=== PATIENT | female | born 1945 | race Caucasian/White ===

== ENCOUNTER 2016-12-16 07:04 | Emergency (ER) | payer MEDICARE, OTHER ==
--- NOTE | 2016-12-16 07:54 | EDM.PDOC ---
ED HPI GENERAL MEDICAL PROBLEM - General Chief Complaint: ENT Problem Stated Complaint: ISSUES SWALLOWING/FEELS LIKE SOMETHING IN THROAT Time Seen by Provider: 12/16/16 07:44 Source of Information: Reports: Patient, RN Notes Reviewed History Limitations: Reports: No Limitations - History of Present Illness INITIAL COMMENTS - FREE TEXT/NARRATIVE: 71-year-old female presents emergency department today with complaint of neck swelling and difficulty swallowing, she states this started about 2 days ago and is progressively gotten worse she denies any fever no trauma no other symptoms - Related Data Allergies Allergy/AdvReac Type Severity Reaction Status Date / Time propoxycaine [Propoxycaine] Allergy Severe Difficulty Verified 12/16/16 07:38 Breathing adhesive Allergy Cannot Verified 12/16/16 07:38 Remember niacin Allergy Itching Verified 12/16/16 07:38 Home Meds: Home Meds Bismuth Subsalicylate [Pepto Bismol] PRN 10/07/13 [History] Calcium Carbonate/Vitamin D2 [Calcium with Vit D] 1 each PO TID 10/07/13 [ History] Metoprolol Tartrate [Lopressor] 50 mg PO TID 10/07/13 [History] Simvastatin [Zocor] 40 mg PO ASDIRECTED 10/07/13 [History] cycloSPORINE [Restasis] 1 each OP ASDIRECTED 10/07/13 [History] Citalopram Hydrobromide [Citalopram HBr] 20 mg PO DAILY 12/16/16 [History] Past Medical History Cardiovascular History: Reports: High Cholesterol, Hypertension Social & Family History - Tobacco Use Second Hand Smoke Exposure: No - Alcohol Use Days Per Week of Alcohol Use: 0 - Recreational Drug Use Recreational Drug Use: No ED ROS GENERAL - Review of Systems Review Of Systems: See Below Constitutional: Denies: Fever, Chills HEENT: Reports: Throat Pain, Throat Swelling Respiratory: Reports: No Symptoms Cardiovascular: Reports: No Symptoms GI/Abdominal: Reports: No Symptoms : Reports: No Symptoms Musculoskeletal: Reports: Neck Pain Skin: Reports: No Symptoms Neurological: Reports: No Symptoms ED EXAM, GENERAL - Physical Exam Exam: See Below Free Text/Narrative:: General: Female, not in any distress, alert and oriented x3 HEENT: head is atraumatic normocephalic, eyes pupils equal round reactive to light, sclera clear no conjunctivitis appreciated. Ears tympanic membranes clear and bey landmarks and light reflex are present bilaterally canals are clear. Nose no septal deviation, nares are clear, no blood present. Mouth mucosa is moist and pink no erythema or exudate noted in soft palate, tongue is midline uvula is midline, dentition is intact. Neck: Does have a enlarged area on the right side starts at the jaw margin and progresses down to the clavicle width is from the trachea to the a auricular , It is fluctuant tender to the touch no erythema noted Nodes: Cervical nodes subclavicular nodes nontender no palpable lymphadenopathy noted. Lungs: clear to auscultation bilaterally with symmetrical respirations, no adventitious noise appreciated. CV: Regular rate and rhythm S1 and S2 appreciated no murmurs rubs or gallops noted. Course - Vital Signs Last Recorded V/S: Last Vital Signs Temp 97.1 F 12/16/16 09:57 Pulse 87 12/16/16 09:57 Resp 16 12/16/16 09:57 BP 163/87 H 12/16/16 09:57 Pulse Ox 95 12/16/16 09:57 - Orders/Labs/Meds Orders: Active Orders 24 hr Category Date Time Status Peripheral IV Care [RC] . DIRECTED Care 12/16/16 08:48 Active Soft Tissue Neck w Cont [CT] Stat Exams 12/16/16 08:47 Taken Iopamidol [Isovue-300 (61%)] Med 12/16/16 09:30 Active 100 ml IV . DIRECTED Sodium Chloride 0.9% [Normal Saline] 1,000 ml Med 12/16/16 09:00 Active IV ASDIRECTED Sodium Chloride 0.9% [Normal Saline] 80 ml Med 12/16/16 09:30 Active IV ASDIRECTED Sodium Chloride 0.9% [Saline Flush] Med 12/16/16 08:47 Active 10 ml FLUSH ASDIRECTED PRN Peripheral IV Insertion Adult [OM.PC] Urgent Oth 12/16/16 08:47 Ordered Medication Orders Sodium Chloride (Normal Saline) 1,000 mls @ 500 mls/hr IV ASDIRECTED NEREYDA Last Admin: 12/16/16 09:35 Dose: 500 mls/hr Sodium Chloride (Normal Saline) 80 mls @ 3 mls/sec IV ASDIRECTED NEREYDA Last Admin: 07/04/17 09:46 Dose: 3 mls/sec Iopamidol (Isovue-300 (61%)) 100 ml IV . DIRECTED NEREYDA Last Admin: 12/16/16 09:46 Dose: 100 ml Sodium Chloride (Saline Flush) 10 ml FLUSH ASDIRECTED PRN PRN Reason: Keep Vein Open Last Admin: 12/16/16 09:46 Dose: 10 ml Admin: 12/16/16 09:34 Dose: 10 ml Labs: Laboratory Tests 12/16/16 12/16/16 Range/Units 07:49 07:49 WBC 6.5 (4.5-11.0) K/uL RBC 4.36 (3.30-5.50) M/uL Hgb 12.2 (12.0-15.0) g/dL Hct 37.3 (36.0-48.0) % MCV 86 (80-98) fL MCH 28 (27-31) pg MCHC 33 (32-36) % Plt Count 199 (150-400) K/uL Neut % (Auto) 41 (36-66) % Lymph % (Auto) 45 H (24-44) % [place] % (Auto) 11 H (2-6) % Eos % (Auto) 3 (2-4) % Baso % (Auto) 1 (0-1) % ESR 7 (0-25) mm/hr Sodium 145 (140-148) mmol/L Potassium 3.9 (3.6-5.2) mmol/L Chloride 108 (100-108) mmol/L Carbon Dioxide 30 (21-32) mmol/L Anion Gap 7.0 (5.0-14.0) mmol/L BUN 16 (7-18) mg/dL Creatinine 0.8 (0.6-1.0) mg/dL Est Cr Clr Drug Dosing 54.90 mL/min Estimated GFR (MDRD) > 60 (>60) Glucose 92 (74-106) mg/dL Calcium 8.8 (8.5-10.1) mg/dL Total Bilirubin 1.6 H (0.2-1.0) mg/dL AST 31 (15-37) U/L ALT 52 (12-78) U/L Alkaline Phosphatase 44 L (46-116) U/L C-Reactive Protein 0.03 (0.0-0.3) mg/dL Total Protein 7.3 (6.4-8.2) g/dL Albumin 3.9 (3.4-5.0) g/dL Globulin 3.4 (2.3-3.5) g/dL Albumin/Globulin Ratio 1.1 L (1.2-2.2) Meds: Medications Generic Name Dose Route Start Last Admin Trade Name Marissa PRN Reason Stop Dose Admin Sodium Chloride 1,000 mls @ 500 mls/hr 12/16/16 09:00 12/16/16 09:35 Normal Saline IV 500 mls/hr ASDIRECTED NEREYDA Administration Sodium Chloride 80 mls @ 3 mls/sec 12/16/16 09:30 12/16/16 09:46 Normal Saline IV 3 mls/sec ASDIRECTED NEREYDA Administration Iopamidol 100 ml 12/16/16 09:30 12/16/16 09:46 Isovue-300 (61%) IV 100 ml . DIRECTED NEREYDA Administration Sodium Chloride 10 ml 12/16/16 08:47 12/16/16 09:46 Saline Flush FLUSH 10 ml ASDIRECTED PRN Administration Keep Vein Open Discontinued Medications Generic Name Dose Route Start Last Admin Trade Name Juan Joséq PRN Reason Stop Dose Admin Ceftriaxone Sodium 1,000 mg 12/16/16 10:27 12/16/16 10:44 Rocephin IVPUSH 12/16/16 10:28 1,000 mg ONETIME ONE Administration Dexamethasone 4 mg 12/16/16 10:49 12/16/16 10:55 Dexamethasone IVPUSH 12/16/16 10:50 4 mg ONETIME ONE Administration Departure - Departure Time of Disposition: 10:58 Disposition: DC/Tfer to Acute Hospital 02 Condition: Fair Clinical Impression: Epiglottitis - Discharge Information Forms: ED Department Discharge - My Orders Last 24 Hours: My Active Orders 12/16/16 08:47 Soft Tissue Neck w Cont [CT] Stat Sodium Chloride 0.9% [Saline Flush] 10 ml FLUSH ASDIRECTED PRN Peripheral IV Insertion Adult [OM.PC] Urgent 12/16/16 08:48 Peripheral IV Care [RC] . DIRECTED 12/16/16 09:00 Sodium Chloride 0.9% [Normal Saline] 1,000 ml IV ASDIRECTED 12/16/16 09:30 Iopamidol [Isovue-300 (61%)] 100 ml IV . DIRECTED Sodium Chloride 0.9% [Normal Saline] 80 ml IV ASDIRECTED - Assessment/Plan Last 24 Hours: My Active Orders 12/16/16 08:47 Soft Tissue Neck w Cont [CT] Stat Sodium Chloride 0.9% [Saline Flush] 10 ml FLUSH ASDIRECTED PRN Peripheral IV Insertion Adult [OM.PC] Urgent 12/16/16 08:48 Peripheral IV Care [RC] . DIRECTED 12/16/16 09:00 Sodium Chloride 0.9% [Normal Saline] 1,000 ml IV ASDIRECTED 12/16/16 09:30 Iopamidol [Isovue-300 (61%)] 100 ml IV . DIRECTED Sodium Chloride 0.9% [Normal Saline] 80 ml IV ASDIRECTED Plan: Assessment Acuity = acute Site and laterality = acute epiglottitis complicated patient with history of hypertension, diastolic heart failure and history of multinodular goiter Etiology = suspicious for bacterial cause Manifestations = difficulty breathing difficulty swallowing Location of injury = Home Lab values = CBC CMP unremarkable CT scan shows marked soft tissue thickening of the right aryepiglottic fold with thickening of the epiglottitis Plan Called and discussed the case year nose and throat physician on-call at [facility] who kindly accept the patient in transport she was given 1 g Rocephin prior to discharge as well as 4 mg dexamethasone she will be transported via EMS services Patient was in agreement with the plan all questions were answered, This note was dictated using [employer] voice recognition software please call with any questions.
[2016-12-16] MEDS ORDERED: Sodium Chloride 0.9% 1,000 ML IV SCH (09:00)
[2016-12-16] MEDS ORDERED: Iopamidol 612 MG/ML 100 ML Bottle IV SCH (09:30)
[2016-12-16] MEDS ORDERED: Sodium Chloride 0.9% 80 ML IV SCH (09:30)
[2016-12-16] MEDS: Sodium Chloride 0.9% 10 ML Syringe FLUSH PRN ×2 (09:34→09:46)
[2016-12-16] MEDS ORDERED: cefTRIAXone 500 MG Vial IVPUSH ONE (10:27)
[2016-12-16] MEDS ORDERED: Dexamethasone 4 MG/ML SDV IVPUSH ONE (10:49)
[2016-12-16 10:59] VITALS: BP 162/92
== END 2016-12-16 11:35 ==
LOC: JP.ED 07:04
DX: J05.10 Acute epiglottitis without obstruction (principal)
CPT/HCPCS: 36415; 70491; 80053; 85025; 85651; 86140; J0696; J1100; J7030; J7040; J7050; Q9967; 96361; 96374; 96375; 99284; 99285-25

== ENCOUNTER 2017-04-15 17:24 | Emergency (ER) | payer MEDICARE, OTHER ==
[2017-04-15] MEDS ORDERED: Sodium Chloride 0.9% 10 ML Syringe FLUSH PRN (17:49)
[2017-04-15] MEDS ORDERED: Ondansetron 4 MG/2 ML SDV IVPUSH PRN (17:50)
--- NOTE | 2017-04-15 17:56 | EDM.PDOC ---
<Zac Simon - Last Filed: 04/15/17 17:51> ED HPI GENERAL MEDICAL PROBLEM - General Chief Complaint: Gastrointestinal Problem Stated Complaint: DIARRHEA WITH BLOODY STOOL Time Seen by Provider: 04/15/17 17:51 Source of Information: Reports: Patient History Limitations: Reports: No Limitations - History of Present Illness INITIAL COMMENTS - FREE TEXT/NARRATIVE: Having flu like symptoms since yesterday after having flu shot with body aches, mild abdominal pain and some chills. Has felt nauseated without vomiting. Started having diarrhea this AM with blood noted more this evening. Complaining of increased cramping, feeling into left flank area. No hx of GI bleeding in past, although had a colonoscopy in 2013 with diverticulosis and possible changes of ischemic colitis. Denies feeling dizzy, no obvious fever, denies cough or urinary symptoms. Had a normal CT of abdomen 2 weeks ago - Related Data Allergies Allergy/AdvReac Type Severity Reaction Status Date / Time propoxycaine [Propoxycaine] Allergy Severe Difficulty Verified 04/15/17 17:44 Breathing adhesive Allergy Cannot Verified 04/15/17 17:44 Remember niacin Allergy Dizziness Verified 04/15/17 17:44 Home Meds: Home Meds Calcium Carbonate/Vitamin D2 [Calcium with Vit D] 1 each PO BID 10/07/13 [ History] Metoprolol Tartrate [Lopressor] 50 mg PO TID 10/07/13 [History] Simvastatin [Zocor] 40 mg PO DAILY 10/07/13 [History] cycloSPORINE [Restasis] 1 each OP BID 10/07/13 [History] Citalopram Hydrobromide [Citalopram HBr] 20 mg PO DAILY 12/16/16 [History] Albuterol [Ventolin HFA] 2 puff INH Q6H PRN 12/26/16 [History] Carboxymethylcellulose Sodium [Refresh Plus 0.5%] BID 12/26/16 [History] Cefuroxime [Ceftin] 1 tab PO BID 12/26/16 [History] Fluticasone Propionate [Flonase] 2 spray MALA DAILY 12/26/16 [History] Lutein/Minerals/Vit A,C & E [Ocuvite] 1 tab PO DAILY 12/26/16 [History] Montelukast [Singulair] 10 mg PO DAILY 12/26/16 [History] Past Medical History Cardiovascular History: Reports: High Cholesterol, Hypertension Gastrointestinal History: Reports: GERD 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: Endometriosis Musculoskeletal History: Reports: Back Pain, Chronic Psychiatric History: Reports: Depression Oncologic (Cancer) History: Reports: Breast - Past Surgical History HEENT Surgical History: Reports: Tonsillectomy Female Surgical History: Reports: Hysterectomy, Salpingo-Oophorectomy Social & Family History - Tobacco Use Smoking Status *Q: Never Smoker Second Hand Smoke Exposure: No - Caffeine Use Caffeine Use: Reports: Coffee - Alcohol Use Days Per Week of Alcohol Use: 0 - Recreational Drug Use Recreational Drug Use: No ED ROS GENERAL - Review of Systems Review Of Systems: See Below Constitutional: Reports: Chills, Malaise, Weakness, Decreased Appetite. Denies : Fever, Diaphoresis HEENT: Reports: No Symptoms Respiratory: Reports: No Symptoms Cardiovascular: Reports: No Symptoms Endocrine: Reports: Fatigue GI/Abdominal: Reports: Abdominal Pain, Bloody Stool, Diarrhea, Decreased Appetite, Nausea. Denies: Black Stool, Difficulty Swallowing, Hematemesis, Melena, Vomiting : Reports: No Symptoms Musculoskeletal: Reports: Muscle Pain Skin: Reports: No Symptoms Neurological: Reports: No Symptoms ED EXAM, GI/ABD - Physical Exam Exam: See Below Exam Limited By: No Limitations General Appearance: Alert, No Apparent Distress Eyes: Bilateral: Normal Appearance Ears: Normal External Exam, Normal Canal Nose: Normal Inspection, Normal Mucosa Throat/Mouth: Normal Inspection, Normal Teeth, Normal Oropharynx Head: Atraumatic, Normocephalic Neck: Normal Inspection, Non-Tender Respiratory/Chest: No Respiratory Distress, Lungs Clear, Normal Breath Sounds Cardiovascular: Normal Peripheral Pulses, Regular Rate, Rhythm, No Murmur GI/Abdominal Exam: Soft, No Mass, Tender (mild over right side). No: Distended , Guarding, Rebound, Abnormal Bowel Sounds Rectal (Female) Exam: Normal Rectal Tone, Bloody Stool Back Exam: Normal Inspection Extremities: Normal Inspection, Normal Range of Motion, No Pedal Edema Neurological: Alert, Oriented, CN II-XII Intact Psychiatric: Normal Affect, Normal Mood Skin Exam: Warm, Normal Color, No Rash Course - Vital Signs Last Recorded V/S: Last Vital Signs Temp 99.3 F 04/15/17 18:52 Pulse 87 04/15/17 18:52 Resp 14 04/15/17 18:52 BP 150/95 H 04/15/17 18:52 Pulse Ox 95 04/15/17 18:52 - Orders/Labs/Meds Orders: Active Orders 24 hr Category Date Time Status Peripheral IV Care [RC] . DIRECTED Care 04/15/17 17:50 Active Ondansetron [Zofran] Med 04/15/17 17:50 Active 4 mg IVPUSH Q4H PRN Sodium Chloride 0.9% [Normal Saline] 500 ml Med 04/15/17 18:00 Active IV .BOLUS Sodium Chloride 0.9% [Saline Flush] Med 04/15/17 17:49 Active 10 ml FLUSH ASDIRECTED PRN Peripheral IV Insertion Adult [OM.PC] Urgent Oth 04/15/17 17:49 Ordered Medication Orders Sodium Chloride (Normal Saline) 500 mls @ 1,000 mls/hr IV .BOLUS NEREYDA Last Admin: 04/15/17 18:02 Dose: 1,000 mls/hr Ondansetron HCl (Zofran) 4 mg IVPUSH Q4H PRN PRN Reason: Nausea/Vomiting Last Admin: 04/15/17 18:02 Dose: 4 mg Sodium Chloride (Saline Flush) 10 ml FLUSH ASDIRECTED PRN PRN Reason: Keep Vein Open Last Admin: 04/15/17 18:02 Dose: 10 ml Labs: Laboratory Tests 04/15/17 04/15/17 04/15/17 Range/Units 18:00 18:00 18:00 WBC 11.1 H (4.5-11.0) K/uL RBC 5.36 (3.30-5.50) M/uL Hgb 14.7 D (12.0-15.0) g/dL Hct 43.2 (36.0-48.0) % MCV 81 (80-98) fL MCH 27 (27-31) pg MCHC 34 (32-36) % Plt Count 235 (150-400) K/uL Neut % (Auto) 81 H (36-66) % Lymph % (Auto) 14 L (24-44) % [place] % (Auto) 5 (2-6) % Eos % (Auto) 0 L (2-4) % Baso % (Auto) 0 (0-1) % PT 12.2 H (9.5-12.0) sec INR 1.13 (0.80-1.20) Sodium 139 L (140-148) mmol/L Potassium 3.6 (3.6-5.2) mmol/L Chloride 103 (100-108) mmol/L Carbon Dioxide 26 (21-32) mmol/L Anion Gap 13.6 (5.0-14.0) mmol/L BUN 13 (7-18) mg/dL Creatinine 0.9 (0.6-1.0) mg/dL Est Cr Clr Drug Dosing 49.17 mL/min Estimated GFR (MDRD) > 60 (>60) Glucose 133 H (74-106) mg/dL Calcium 8.8 (8.5-10.1) mg/dL Total Bilirubin 2.6 H D (0.2-1.0) mg/dL AST 26 (15-37) U/L ALT 40 (12-78) U/L Alkaline Phosphatase 65 (46-116) U/L Total Protein 7.2 (6.4-8.2) g/dL Albumin 4.0 (3.4-5.0) g/dL Globulin 3.2 (2.3-3.5) g/dL Albumin/Globulin Ratio 1.3 (1.2-2.2) Meds: Medications Generic Name Dose Route Start Last Admin Trade Name Freq PRN Reason Stop Dose Admin Sodium Chloride 500 mls @ 1,000 mls/hr 04/15/17 18:00 04/15/17 18:02 Normal Saline IV 1,000 mls/hr .BOLUS NEREYDA Administration Ondansetron HCl 4 mg 04/15/17 17:50 04/15/17 18:02 Zofran IVPUSH 4 mg Q4H PRN Administration Nausea/Vomiting Sodium Chloride 10 ml 04/15/17 17:49 04/15/17 18:02 Saline Flush FLUSH 10 ml ASDIRECTED PRN Administration Keep Vein Open - Re-Assessments/Exams Free Text/Narrative Re-Assessment/Exam: 04/15/17 17:58 72 year old female with onset of bloody stools today associated with flu like symptoms since yesterday after a flu shot. Exam with mild abdominal tenderness, and probable blood on finger rectal exam. Will order IV, IV bolus, zofran and labs including CBC, T&S, CMP. Consider diverticular bleeding, possible ischemic bowel with previous findings on colonoscopy in past. At change of shift, care will be transferred to Dr. Schneider Departure - Departure Disposition: Home, Self-Care 01 Clinical Impression: Bloody stools - Discharge Information Referrals: Esthela Francis MD [Primary Care Provider] - Forms: ED Department Discharge Additional Instructions: Please report for your colonoscopy on Thursday the hospital will call you with the time, please call return to the emergency department with worsening of symptoms <Hugo Schneider - Last Filed: 04/15/17 19:17> Departure - Departure Time of Disposition: 19:16 - Assessment/Plan Plan: Assessment Acuity = acute Site and laterality = bright red blood per stool Etiology = unclear etiology Manifestations = none Location of injury = Home Lab values = hemoglobin 14.7 within normal limits, INR normal at 1.13 total bilirubin elevated at 2.6 consistent hyperbilirubinemia of unclear etiology Plan Called discussed case with Dr. Crabtree general surgery recommended colonoscopy she will be scheduled for this in 48 hours, she is to return to the emergency department with any worsening of symptoms Patient was in agreement with the plan all questions were answered, they were instructed to return to the emergency department or call for worsening symptoms. This note was dictated using [employer] voice recognition software please call with any questions.
[2017-04-15] MEDS ORDERED: Sodium Chloride 0.9% 500 ML IV SCH (18:00)
[2017-04-15 18:53] VITALS: BP 150/95
== END 2017-04-15 19:42 | disposition home or self-care (01) ==
LOC: JP.ED 17:24
DX: K92.1 Melena (principal); I10 Essential (primary) hypertension; E78.00 Pure hypercholesterolemia, unspecified; F32.9 Major depressive disorder, single episode, unspecified; Z79.899 Other long term (current) drug therapy; Z88.6 Allergy status to analgesic agent; Z88.8 Allergy status to other drugs, medicaments and biological substances; Z91.048 Other nonmedicinal substance allergy status
CPT/HCPCS: 36415; 80053; 82272; 85025; 85610; 96374; 99284; J2405; J7040; J7050; 99283

== ENCOUNTER 2017-04-17 08:46 | Day surgery (SDC) | payer MEDICARE, OTHER ==
[~2017-04-17 08:46] MED LIST: Lactated Ringers 1,000 ML IV SCH
[2017-04-17] MEDS ORDERED: Propofol 200 MG/20 ML SDV ONE (09:45)
[2017-04-17] MEDS ORDERED: Midazolam 1 MG/ML 2 ML SDV ONE (09:45)
[2017-04-17] MEDS ORDERED: fentaNYL 100 MCG/2 ML SDV ONE (09:45)
[2017-04-17 11:42] VITALS: BP 116/71
--- NOTE | 2017-04-17 14:41 | OR ---
DATE OF PROCEDURE: 04/17/2017 PREOPERATIVE DIAGNOSIS: Blood in stool. POSTOPERATIVE DIAGNOSES: 1. Blood in stool, resolved. 2. Transverse colon colitis. 3. Right-sided diverticulosis. PROCEDURE: Colonoscopy to the cecum with biopsy of transverse colon colitis and Kamini ink marking of distal aspect of the colitis. SURGEON: Francois Sadler MD. ANESTHESIA: IV anesthesia with monitored anesthesia care. INDICATION: This 72-year-old white female is referred for a colonoscopy because of blood in her stool. This has resolved. She was seen in the emergency two days ago with a colonoscopy then scheduled. Her last colonoscopic exam was done several years ago. I counseled her for the procedure including risks and alternatives, and she gave her informed consent to proceed. DESCRIPTION OF PROCEDURE: The patient was placed in the left lateral decubitus position. IV anesthesia was administered by the Anesthesia Service. Time-out was held. A rectal exam was performed, which was unremarkable. A flexible video Olympus colonoscope was introduced through her anus, up her rectum and out her colon all the way to the cecum. At the area of the splenic flexure, we encountered what appeared to be some colitis with an ulcer. We biopsied this and then marked it with the Kamini ink. As we passed higher up into the colon, we encountered continued colitis throughout much of her transverse colon. Once we got past the hepatic flexure, all looked well. The scope was passed down into the cecum. The scope was then slowly withdrawn, examining the mucosa throughout. We saw a single right-sided diverticulum. There was no bleeding or inflammation associated with it. The scope was withdrawn further with no other abnormalities noted other than the colitis already mentioned. The scope was retroflexed in the rectum with the distal rectum appearing unremarkable. The scope was straightened and removed. She tolerated the procedure well. Francois Sadler MD /[id number] MTDD
== END 2017-04-17 11:54 | disposition home or self-care (01) ==
LOC: JP.SDS 08:46
PROVIDERS: ATTEND Surgery
DX: K51.90 Ulcerative colitis, unspecified, without complications (principal); K57.30 Diverticulosis of large intestine without perforation or abscess without bleeding; I10 Essential (primary) hypertension; J44.9 Chronic obstructive pulmonary disease, unspecified; F32.9 Major depressive disorder, single episode, unspecified; E78.00 Pure hypercholesterolemia, unspecified; K21.9 Gastro-esophageal reflux disease without esophagitis; Z88.8 Allergy status to other drugs, medicaments and biological substances; Z91.09 Other allergy status, other than to drugs and biological substances; Z90.710 Acquired absence of both cervix and uterus; Z98.890 Other specified postprocedural states
CPT/HCPCS: 45380; J2250; J2704; J3010; J7120; 88305

== ENCOUNTER 2021-06-17 06:27 | Day surgery (SDC) | payer MEDICARE, OTHER ==
[2021-06-17] MEDS ORDERED: Acetaminophen 500 MG Tab PO ONE (07:00)
[2021-06-17] MEDS ORDERED: Albuterol/Ipratropium 3.0-0.5 MG/3 ML Neb Soln NEB ONE (07:00)
[2021-06-17] MEDS ORDERED: Dextrose 5%-Lactated Ringers 1,000 ML IV SCH (07:00)
[2021-06-17] MEDS ORDERED: Propofol 200 MG/20 ML SDV ONE (07:14)
[2021-06-17] MEDS ORDERED: Lidocaine 1% with EPINEPHrine 1:100,000 50 ML MDV ONE (07:14)
[2021-06-17] MEDS ORDERED: Midazolam 1 MG/ML 2 ML SDV ONE (07:14)
[2021-06-17] MEDS ORDERED: fentaNYL 100 MCG/2 ML SDV ONE (07:14)
[2021-06-17] MEDS ORDERED: Bacitracin Oint 1 GM U/D Packet ONE (07:14)
[2021-06-17] MEDS ORDERED: Bupivacaine 0.5% 50 ML MDV ONE (07:14)
[2021-06-17] MEDS ORDERED: ceFAZolin 2 GM in Premix Bag 1 BAG IV ONE (08:00)
[2021-06-17 09:20] VITALS: BP 114/78; PULSE 67
--- NOTE | 2021-06-19 11:54 | OR ---
DATE OF PROCEDURE: 06/17/2021 SURGEON: Stephen Sultana MD PREOPERATIVE DIAGNOSIS: Chronically inflamed epidermoid cyst, left upper back. POSTOPERATIVE DIAGNOSIS: Chronically inflamed epidermoid cyst, left upper back. OPERATIVE PROCEDURE: Excision of chronically inflamed epidermoid cyst of left upper back with layered closure ([id number]). HOT TOP LINER HELPER: CHELSEA Treadwell INDICATIONS FOR PROCEDURE: A 76-year-old presenting with an epidermoid cyst which has been draining and somewhat reddened and chronically inflamed. The plan is to proceed with excision with primary closure attempt to stay out of the plane of the cyst wall itself. Potential risks of the procedure including bleeding, infection, and recurrence of the problem over time were reviewed, and the patient wishes to proceed. DETAILS OF PROCEDURE: The patient was taken to the operating room and placed in a right lateral decubitus position. IV sedation was administered after which the back area was then prepped and draped. A transverse elliptical incision was made around the lesion, and the lesion removed intact with small amounts of normal-appearing skin and subcutaneous tissue around it. At no point did any purulence entered the wound or the cyst wall become evident with any edges of the dissection. Specimen was then delivered from the field. Incision was closed with some 3-0 Vicryl stitch deep and then a 5-0 Prolene skin stitch, and dressing applied. The lesion plus margin length was 2.2 cm, incision length 4.1 cm. Dressings applied. The patient was taken to recovery room in satisfactory condition. Stephen Sultana MD /[id number]
== END 2021-06-17 09:21 | disposition home or self-care (01) ==
LOC: JP.SDS 06:27
PROVIDERS: ATTEND Surgery
DX: L72.0 Epidermal cyst (principal); J44.9 Chronic obstructive pulmonary disease, unspecified; K21.9 Gastro-esophageal reflux disease without esophagitis; N18.9 Chronic kidney disease, unspecified
CPT/HCPCS: 11403; 12032; 94640; A9270; J0690; J2250; J2704; J3010; J3490; J7121; 88304; J7620-GY